=== PATIENT | male | born 1970 | race Caucasian/White ===

== ENCOUNTER → 2024-09-13 | Outpatient (CLI) | payer OTHER ==
[2024-09-13 15:15] LABS: Chol/HDL Ratio 5.64 Ratio; LDL Cholesterol,Calculated 105.2 mg/dL (0.0-131.0)
[2024-09-13 15:16] LABS: ALT 15 U/L (10-49); AST 16 U/L (14-35)
== END | disposition home or self-care (01) ==
LOC: LABWHC1 09:04
PROVIDERS: ATTEND Internal Medicine Cardiovascular Disease
DX: E78.2 Mixed hyperlipidemia (principal)
CPT/HCPCS: 36415; 80061; 84450; 84460